=== PATIENT | male | born 1995 | race Caucasian/White ===

== ENCOUNTER 2017-12-22 11:42 | Emergency (ER) | payer OTHER ==
[~2017-12-22] VITALS: Ht 172.7 cm; Wt 59.0 kg
[2017-12-22 11:47] VITALS: BP 129/71
--- NOTE | 2017-12-22 11:50 | ED ANIMAL BITE/WOUND CHECK ---
History of Present Illness General Chief Complaint: Suture Removal/Wound Recheck Stated Complaint: SUTURE REMOVAL Source: patient Exam Limitations: no limitations Vital Signs & Intake/Output Vital Signs & Intake/Output Vital Signs Date Time Temp Pulse Resp B/P B/P Pulse O2 O2 Flow FiO2 Mean Ox Delivery Rate 12/22 1147 98.3 88 18 129/71 98 Room Air Allergies Coded Allergies: NO KNOWN ALLERGIES (10/01/10) Reconcile Medications No Known Home Medications Triage Note: 22 YO MALE TO TRIAGE FOR SUTURE REMOVAL. Triage Nurses Notes Reviewed? yes Onset: Abrupt Duration: week(s): (1) HPI: 22-year-old male with no medical history presents for suture removal. About one week ago he was seen for a laceration to the left forehead that was treated with 2 sutures. His been keeping the area clean and dry he offers no complaints. (Alex Crump) Past History Travel History Traveled to [place] past 21 day No Medical History Any Pertinent Medical History? see below for history Neurological: NONE EENT: NONE Cardiovascular: NONE Respiratory: NONE Gastrointestinal: NONE Hepatic: NONE Renal: NONE Musculoskeletal: NONE Psychiatric: NONE Endocrine: NONE Blood Disorders: NONE Cancer(s): NONE PROGRAM ADMINISTRATOR/Reproductive: NONE Tetanus Vaccine: 12/14/17 Surgical History Surgical History: non-contributory Psychosocial History What is your primary language [place] Tobacco Use: Never used Family History Hx Contributory? No (Alex Crump) Review of Systems Review of Systems Constitutional: Reports: no symptoms. EENTM: Reports: no symptoms. Respiratory: Reports: no symptoms. Cardiovascular: Reports: no symptoms. GI: Reports: no symptoms. Genitourinary: Reports: no symptoms. Musculoskeletal: Reports: no symptoms. Skin: Reports: see HPI (Laceration). Neurological/Psychological: Reports: no symptoms. Hematologic/Endocrine: Reports: no symptoms. Immunologic/Allergic: Reports: no symptoms. All Other Systems: Reviewed and Negative (Alex Crump) Physical Exam Physical Exam General Appearance: well developed/nourished, no apparent distress, alert, awake Head: there is a well-healed 1 cm linear laceration to the left forehead. [address] there is no erythema discharge swelling or tenderness Eyes: Bilateral: normal appearance. Neck: normal inspection Respiratory: no respiratory distress Back: normal inspection, normal range of motion Extremities: normal range of motion Neurologic/Psych: no motor/sensory deficits, awake, alert, oriented x 3, normal gait, normal mood/affect Skin: intact, normal color, warm/dry (Alex Crump) Progress Differential Diagnosis: abscess, cellulitis, joint infection Plan of Care: Patient is here for suture removal the laceration is well-healed 2 sutures were removed without complication patient tolerated well discussed return precautions and wound care procedures patient agrees with plan (Alex Crump) Departure Departure Disposition: HOME OR SELF CARE Condition: Stable Clinical Impression Primary Impression: Encounter for removal of sutures Referrals: Patient Has No Primary Care Dr (PCP/Family) Additional Instructions: Keep the area clean and dry [place] for signs of infection like redness swelling discharge or pain to follow-up with your doctor for recheck in a few days return with any concerns Departure Forms: Customer Survey General Discharge Information Prescriptions: Current Visit Scripts No Known Home Medications (Alex Crump) PA/STAPLE CUTTER Co-Sign Statement Statement: ED Attending supervision documentation- I saw and evaluated the patient. I have also reviewed all the pertinent lab results and diagnostic results. I agree with the findings and the plan of care as documented in the PA's/STAPLE CUTTER's documentation. x I have reviewed the ED Record and agree with the PA's/STAPLE CUTTER's documentation. [] Additions or exceptions (if any) to the PAs/STAPLE CUTTER's note and plan are summarized below: [] (Marco MENDEZ,J Carlos)
== END 2017-12-22 11:51 ==
LOC: ERH 11:42
DX: Z48.02 Encounter for removal of sutures (principal)